=== PATIENT | female | born 1995 | race Caucasian/White ===

== ENCOUNTER 2024-03-19 17:30 | Emergency (ER) | payer SELFPAY ==
[2024-03-19 17:51] LABS: % Basophils 0.3 % (0-2); % Eosinophils 0.3 % (0-6); % Immature Granulocytes 0.3 % (0-0.5); % Lymphocytes 21.6 % (20.5-51.1); % Monocytes 5.7 % (1.7-9.3); % Neutrophils 71.8 % (42.2-75.2); Absolute Lymphocytes 2.2 10^3/uL (1.2-3.4); Absolute Monocytes 0.6 10^3/uL (0.1-0.6); Absolute Neutrophils 7.4 10^3/uL (1.4-6.5); Hematocrit 41.1 % (37.0-47.0); Hemoglobin 14.6 g/dL (12.0-16.0); Mean Corp Hgb Conc. 35.5 g/dL (33.0-37.0); Nucleated Red Blood Cells % 0 %; Platelet Count 267 10^3/uL (130-400); Red Blood Cell Count 4.42 10^6/uL (4.20-5.40); Red Cell Dist. Width 11.7 % (11.5-14.5); White Blood Cell Count 10.3 10^3/uL (4.8-10.8)
[2024-03-19 18:04] LABS: ALT (SGPT) 21 U/L (0-35); AST (SGOT) 25 U/L (14-36); Albumin 5.1 g/dl (3.5-5.0); Alkaline Phosphatase 56 U/L (38-126); Blood Urea Nitrogen 12 mg/dl (7-17); Calcium 10.8 mg/dl (8.4-10.2); Carbon Dioxide 30 mmol/L (22-30); Chloride 102 mmol/L (98-107); Glucose 103 mg/dl (70-99); Lipase 73 U/L (23-300); Potassium 4.4 mmol/L (3.5-5.1); Sodium 143 mmol/L (135-145); Total Bilirubin 0.8 mg/dl (0.2-1.3); eGFR > 60.00
[2024-03-19 19:17] LABS: Beta HCG Quantitative < 2.39 mIU/ml
--- NOTE | 2024-03-19 19:24 | EDRN ---
Pts mother approached desk and interrupted this RN who was speaking to another pt checking in to be seen, to inform staff that 'a mistake was made' and that 'others have gone back to rooms before my daughter', this RN attempted to inform pts mother
that pts are roomed by acuity and not necessarily time of arrival and pts mother walked away from desk prior to explanation making statements under her breath.
[2024-03-19] MEDS: PROTONIX IV 40 MG IV (20:30)
[2024-03-19] MEDS: NSS 1000 IV (20:30)
[2024-03-19] MEDS: ZOFRAN 4 MG IV (20:30)
[2024-03-19 22:21] VITALS: BP 121/87
--- NOTE | 2024-03-19 23:27 | ED.GENMED ---
History of Present Illness
General
Chief Complaint: Abdominal Symptoms
Source: patient
Exam Limitations: none
Time Seen by Provider: 03/19/24 19:41
Nursing documentation reviewed up to this point in time: agreed with
History of Present Illness
History of Present Illness:
Patient to ED with complaint of nausea and vomiting. 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 Noted blood streaks in vomitus. Brought to ED by parents for eval
Past History
Past History
ED Past Medical History: None
Social History
Tobacco: Non-smoker
Personal: Single
Living: with family
Review of Systems
Review of Systems
Allergies reviewed?: Yes
All Other Systems: ROS reviewed and negative except as documented in HPI and ROS
Constitutional: Reports no symptoms
EENT: Reports no symptoms
Respiratory: Reports no symptoms
Cardiac: Reports no symptoms
ABD/GI: Reports abdominal pain, nausea, vomiting and diarrhea
: Reports no symptoms
Musculoskeletal: Reports no symptoms
Skin: Reports no symptoms
Neurological: Reports no symptoms
Psychiatric: Reports no symptoms
Phy Exam
General Physical Exam
General Presentation: well appearing and no apparent distress
General age: appears stated age
General Skin: warm and dry
General Habitus: normal
Cardiovascular Exam
Cardiovascular Exam: regular rate/rhythm and no edema
Gastrointestinal Exam
Gastrointestinal Exam: normal bowel sounds, soft, no organomegaly, non distended and no cva tenderness
Palpation: generalized: Mild tenderness
Musculoskeletal Exam
Musculoskeletal Exam: full ROM and neuro vasc intact
Skin Exam
Skin Exam: normal color, warm/dry and no rash
Psychiatric Exam
Psychiatric Exam: normal mood/affect
Course
Orders/Labs/Results
Orders:
Orders
03/19/24 17:42
Beta HCG Quantitative Urgent
Comment: ADD ON
CMP [Comprehensive Metabolic Panel] Urgent
Complete Blood Count/With Diff Urgent
Lipase Urgent
03/19/24 18:47
Add On- LAB Urgent
Tests Added?: serum hcg quant
03/19/24 20:15
0.9% Sodium Chloride 1000 ml [Nss] 1,000 ml IV BOLUS
Ondansetron Injectable [Zofran] 4 mg IV NOW STA
Pantoprazole [Protonix IV] 40 mg IV NOW STA
03/19/24 20:16
CT Abd/pelvis W Iv Cont Urgent
Comment:
Reason For Exam: vomiting
Abnormal Lab Results
03/19/24
17:42
MCH 33.0 H pg
(27.0-31.0)
Absolute Neuts (auto) 7.4 H 10^3/uL
(1.4-6.5)
Glucose 103 H mg/dl
(70-99)
Calcium 10.8 H mg/dl
(8.4-10.2)
Albumin 5.1 H g/dl
(3.5-5.0)
03/19/24 17:42
03/19/24 17:42
Vital Signs
Initial and Last Documented VS:
Initial Vital Signs
Temp Pulse Resp Pulse Ox
97.8 F 78 16 99
03/19/24 17:35 03/19/24 17:35 03/19/24 17:35 03/19/24 17:35
Last Documented Vital Signs
Temp Pulse Resp BP Pulse Ox
98.4 F 78 16 121/87 98
03/19/24 22:21 03/19/24 17:35 03/19/24 17:35 03/19/24 22:21 03/19/24 22:21
*Radiology
Radiology exam reviewed: radiology read reviewed
*Pulse Oximetry
Patient hypoxic: no
*Critical Care Note
Total Time (30-74mins, 75-104mins- exclusive of procedures): Not Applicable
Update Note
Update Note:
Labs, Ct reviewed with patient. No findings to explain her symptoms. She does report increased episodes after drinking. SHe admits to drinking last PM. Possible alcohol gastritis? WIll try short course of pantoprozole,recommend refraining from
alcohol during this time. She was given number for GI followup. Given instructions on s/s to return to ED and she is agreeable to plan.
ED Attending Note
-
Portions of this chart may have been created with voice recognition software.� Occasional wrong word or��sound alike� substitutions may have occurred due to the inherent limitations of voice recognition software.
Discharge Plan
Departure
Patient Disposition: Home (Routine Discharge)
Date of Disposition: 03/19/24
Time of Disposition: 22:21
Patient with high blood pressure during this ER visit?: No
Condition: Good
Covid-19: Not Applicable
Discharge Problem:
Acute vomiting
Instructions: Nausea and Vomiting, Adult (DC)
Prescriptions:
New
pantoprazole [Protonix] 40 mg tablet,delayed release (DR/EC)
40 mg PO DAILY Qty: 14 0RF
ondansetron 4 mg tablet,disintegrating
4 mg PO Q8H PRN (Reason: nausea and vomiting) 4 Days Qty: 12 0RF
No Action
norethindrone ac-eth estradiol [07/04 ()] 1 TAB tablet
1 tab PO DAILY
ondansetron [Zofran ODT] 8 MG tablet,disintegrating
8 mg PO TIDPRN PRN (Reason: vomiting) Qty: 15 0RF
oxycodone [OxyIR] 5 MG capsule
5 mg PO Q6HPRN PRN (Reason: pain) Qty: 14 0RF
albuterol sulfate 1 PUFF HFA aerosol inhaler
2 puff inhalation R Q4HPRN PRN (Reason: cough) Qty: 1 0RF
Referrals:
NONE,* [Family Provider] -
Janelle Wolff, DO [Active] - Call in 1-3 days for appt
Activity Restrictions/Additional Instructions:
Return to the emergency department immediately for any changes in/worsening of your symptoms.
Interventions
Interventions:
*Risk Screen - Suicide Last Done: 03/19/24 17:35
*General Assessment Last Done: 03/19/24 20:00
*Neglect/Abuse Screening Last Done: 03/19/24 17:35
*ED COVID-19 Vaccine History Last Done: 03/19/24 17:35
*Nursing Disposition Last Done: 03/19/24 22:28
EN-Yngdrg-Vsxbvbpspj Assessment Last Done: 03/19/24 20:00
Discharge Date and Time
Discharge Date/Time: 03/19/24 22:29
Print Language: [email or web address]
== END 2024-03-19 22:29 | disposition home or self-care (01) ==
LOC: EMR 17:30
PROVIDERS: Emergency Medicine; EMERGENCY PHYSICIAN Emergency Medicine
DX: R11.2 Nausea with vomiting, unspecified (principal); R10.9 Unspecified abdominal pain; R19.7 Diarrhea, unspecified; R51.9 Headache, unspecified
CPT/HCPCS: 99284; 96375; 96361; 96374; 74177; 80053; 83690; 84702; 85025; Q9967